=== PATIENT | female | born 1990 | race Caucasian/White ===

== ENCOUNTER 2022-05-04 08:41 | Emergency (ER) | payer BC, MEDICAID ==
[2022-05-04 09:06] VITALS: BP 125/83; PULSE 84
[2022-05-04] MEDS ORDERED: Lidocaine 2% Jelly 10 ML Urojet MUCMEM ONE (09:16)
[2022-05-04] MEDS ORDERED: Lactulose Soln 10 GM/15 ML 30 ML UD Cup PO ONE (09:16)
[2022-05-04] MEDS ORDERED: Magnesium Citrate Solution 296 ML Bottle PO ONE (09:16)
[2022-05-04] MEDS ORDERED: Lidocaine 5% Oint 35.44 GM Tube TOP ONE (09:18)
== END 2022-05-04 09:40 | disposition home or self-care (01) ==
LOC: DL.ED 08:41
DX: K64.8 Other hemorrhoids (principal); Z79.899 Other long term (current) drug therapy
CPT/HCPCS: 99282; 99283; A9270-GY